=== PATIENT | male | born 2000 ===

== ENCOUNTER 2021-07-20 15:31 | Emergency (ER) | payer SELFPAY ==
--- NOTE | 2021-07-20 17:00 | Emergency Department Report ---
ED ENT HPI - General Chief complaint: Sore Throat Stated complaint: SORE THROAT Time Seen by Provider: 07/20/21 16:51 Source: patient Mode of arrival: Ambulatory Limitations: No Limitations - History of Present Illness Initial comments: This is a 20-year-old Korean-speaking male who presents emergency department chief complaint of persistent sore throat over the past 10 days. Patient was seen in an outpatient clinic on 2 separate occasions and treated with cefdinir and is prison through that prescription reports he is not feeling any better. He denies any known past medical history, current medication use or known allergies to medications. He denies any associated fever, chills, night sweats, headache, dizziness, blurry vision, nausea,, diarrhea, chest pain, shortness of breath, weakness or any other associated symptoms. - Related Data Previous Rx's Medication Instructions Recorded Last Taken Type Nystas/Diphen/Xyl Visc/Mylanta 15 ml PO TID #120 ml 07/20/21 Unknown Rx [Magic Mouthwash] methylPREDNISolone [Medrol 4MG 4 mg PO ONCE #1 tab.ds.pk 07/20/21 Unknown Rx DOSEPAK (21 tabs)] Allergies Allergy/AdvReac Type Severity Reaction Status Date / Time No Known Allergies Allergy Unverified 07/20/21 16:45 ED Dental HPI - General Chief complaint: Sore Throat Stated complaint: SORE THROAT Time Seen by Provider: 07/20/21 16:51 Source: patient Mode of arrival: Ambulatory Limitations: No Limitations - Related Data Previous Rx's Medication Instructions Recorded Last Taken Type Nystas/Diphen/Xyl Visc/Mylanta 15 ml PO TID #120 ml 07/20/21 Unknown Rx [Magic Mouthwash] methylPREDNISolone [Medrol 4MG 4 mg PO ONCE #1 tab.ds.pk 07/20/21 Unknown Rx DOSEPAK (21 tabs)] Allergies Allergy/AdvReac Type Severity Reaction Status Date / Time No Known Allergies Allergy Unverified 07/20/21 16:45 ED Review of Systems ROS: Stated complaint: SORE THROAT Other details as noted in HPI Comment: All other systems reviewed and negative Constitutional: denies: chills, fever Eyes: denies: eye pain, eye discharge, vision change ENT: as per HPI, throat pain. denies: ear pain Respiratory: denies: cough, shortness of breath, wheezing Cardiovascular: denies: chest pain, palpitations Endocrine: no symptoms reported Gastrointestinal: denies: abdominal pain, nausea, diarrhea Genitourinary: denies: urgency, dysuria Musculoskeletal: denies: back pain, joint swelling, arthralgia Skin: denies: rash, lesions Neurological: denies: headache, weakness, paresthesias Psychiatric: denies: anxiety, depression Hematological/Lymphatic: denies: easy bleeding, easy bruising ED Past Medical Hx - Medications Home Medications: Home Medications Medication Instructions Recorded Confirmed Last Taken Type Nystas/Diphen/Xyl Visc/Mylanta 15 ml PO TID #120 ml 07/20/21 Unknown Rx [Magic Mouthwash] methylPREDNISolone [Medrol 4MG 4 mg PO ONCE #1 tab.ds.pk 07/20/21 Unknown Rx DOSEPAK (21 tabs)] ED Physical Exam - General Limitations: No Limitations General appearance: alert, in no apparent distress - Head Head exam: Present: atraumatic, normocephalic - Eye Eye exam: Present: normal appearance, PERRL, EOMI Pupils: Present: normal accommodation - ENT ENT exam: Present: mucous membranes moist, TM's normal bilaterally. Absent: normal exam, normal orophraynx (Mild erythema the posterior pharynx, no peritonsillar bulging, retropharyngeal bulging or to elevation. No drooling or dysphonia.) - Neck Neck exam: Present: normal inspection, full ROM. Absent: tenderness, meningismus - Respiratory Respiratory exam: Present: normal lung sounds bilaterally. Absent: respiratory distress, wheezes, rales, rhonchi, stridor, chest wall tenderness - Cardiovascular Cardiovascular Exam: Present: regular rate, normal rhythm, normal heart sounds. Absent: systolic murmur, diastolic murmur, rubs, gallop - GI/Abdominal GI/Abdominal exam: Present: soft, normal bowel sounds - Rectal Rectal exam: Present: deferred - Extremities Exam Extremities exam: Present: normal inspection, full ROM, normal capillary refill. Absent: tenderness, calf tenderness - Back Exam Back exam: Present: normal inspection, full ROM. Absent: tenderness, CVA tenderness (R), CVA tenderness (L) - Neurological Exam Neurological exam: Present: alert, oriented X3, normal gait - Psychiatric Psychiatric exam: Present: normal affect, normal mood - Skin Skin exam: Present: warm, dry, intact, normal color. Absent: rash ED Course Vital Signs 07/20/21 16:45 Temperature 99.0 F Pulse Rate 63 Respiratory 18 Rate O2 Sat by Pulse 98 Oximetry ED Medical Decision Making - Medical Decision Making Patient is well-appearing, nontoxic, vital signs are stable. Mild erythema the posterior pharynx. Patient is already appropriately covered with antibiotics. I will cover him with Magic mouthwash and short steroid taper. Recommend he return the emerge department any change or worsening symptoms. Verbalized understand the diagnosis, treatment plan and follow-up instructions and all his questions were answered. - Differential Diagnosis Strep throat, viral syndrome, COVID-19 Critical care attestation.: If time is entered above; I have spent that time in minutes in the direct care of this critically ill patient, excluding procedure time. ED Disposition Clinical Impression: Acute pharyngitis Qualifiers: Pharyngitis/tonsillitis etiology: unspecified etiology Qualified Code(s): J02.9 - Acute pharyngitis, unspecified Disposition: 01 HOME / SELF CARE / HOMELESS Is pt being admited?: No Condition: Stable Instructions: Pharyngitis Prescriptions: Nystas/Diphen/Xyl Visc/Mylanta [Magic Mouthwash] 15 ml PO TID #120 ml methylPREDNISolone [Medrol 4MG DOSEPAK (21 tabs)] 4 mg PO ONCE #1 tab.ds.pk Referrals: [facility] [Provider Group] - 3-5 Days Forms: Work/School Release Form(ED) Time of Disposition: 16:58
== END 2021-07-20 17:11 | disposition home or self-care (01) ==
LOC: EDBD → ED 15:31
DX: J02.9 Acute pharyngitis, unspecified (principal)
CPT/HCPCS: 99282